=== PATIENT | female | born 1960 | race Caucasian/White ===

== ENCOUNTER 2016-10-21 08:36 | Emergency (ER) | payer BC ==
[2016-10-21 08:52] VITALS: BP 134/84
--- NOTE | 2016-10-21 09:36 | UC ---
Skin Complaint HPI - HPI Summary HPI Summary: Pt presents to the ED through amb triage. Pt states starting on Saturday developed erythema on anterior surface of ankle. Since this time, erythema has spread proximal and more circumferential. Pt denies fevers. States chills last night. Pt denies n/v. Pt with + pain - has not taken analgesia. Pt states had similar infection on RLE 2 years ago. Pt states developed blisters and required treatment at wound center. Pt denies calf pain. Pt is not immunocompromised. No wounds. Pt states stands on concrete floor for 8 hour work shifts. Not diabetic. Pt's medications reviewed at this visit. - History of Current Complaint Chief Complaint: UCSkin Time Seen by Provider: 10/21/16 09:16 Stated Complaint: LEFT LEG INFECTION Hx Obtained From: Patient Hx Last Menstrual Period: n/a ?: No Onset/Duration: Gradual Onset Skin Exposure Onset/Duration: Days Ago Timing: Constant Onset Severity: Mild Current Severity: Moderate Pain Intensity: 6 Pain Scale Used: 0-10 Numeric Location: Discrete - LLE Aggravating: Touch Alleviating: Nothing Associated Signs & Symptoms: Positive: Chills. Negative: Nausea, Diaphoresis, Wheezing, Chest Pain, Abdominal Pain - Allergy/Home Medications Allergies/Adverse Reactions: Allergies Allergy/AdvReac Type Severity Reaction Status Date / Time No Known Allergies Allergy Verified 10/21/16 08:52 Home Medications: Home Medications Levothyroxine TAB* [Synthroid TAB*] 100 mcg PO DAILY 10/21/16 [History Confirmed 10/21/16] Review of Systems Constitutional: Negative Skin: Rash Eyes: Negative ENT: Negative Respiratory: Negative Cardiovascular: Negative Gastrointestinal: Negative Genitourinary: Negative Motor: Negative Neurovascular: Negative Musculoskeletal: Negative Neurological: Negative Psychological: Negative All Other Systems Reviewed And Are Negative: Yes PMH/Surg Hx/FS Hx/Imm Hx Previously Healthy: Yes Endocrine History Of: Reports: Thyroid Disease - hypo-no meds - Surgical History Surgical History: None - Family History Known Family History: Positive: Hypertension - Social History Occupation: Employed Full-time Lives: With Family Alcohol Use: None Substance Use Type: None Smoking Status (MU): Former Smoker Type: Cigarettes Amount Used/How Often: 1/2 ppd Length of Time of Smoking/Using Tobacco: since 16 yo Household Exposure Type: Cigarettes - Immunization History Most Recent Influenza Vaccination: 4860-0351 Physical Exam Triage Information Reviewed: Yes Appearance: Well-Appearing, No Pain Distress, Well-Nourished Vital Signs: Initial Vital Signs Temp 98.3 F 10/21/16 08:46 Pulse 97 10/21/16 08:46 Resp 18 10/21/16 08:46 BP 134/84 10/21/16 08:46 Pulse Ox 98 10/21/16 08:46 Vital Signs Reviewed: Yes Eyes: Negative: Discharge ENT: Positive: Hearing grossly normal Neck: Positive: Supple, Nontender, No Lymphadenopathy Respiratory: Positive: No respiratory distress Cardiovascular: Positive: Other: - 2+ DP CBT < 2 sec Musculoskeletal: Positive: Strength Intact Neurological Exam: Normal Neurological: Positive: Alert Psychological Exam: Normal Skin: Positive: Other - Pt with erythema to dorsum of left foot with migration anterior pandey and near cicumferential to left ankle. + TTP no crepitus, open wound Course/Dx - Course Course Of Treatment: Pt with progressive cellulitisl LLE dorsum foot to mid pandey. + TTP. warmth. recommend pt to ED for labs, IV abx. d/w pt may require admission pending labs. Pt in agreement to go to ED. D/w Dr. Lawrence - accepting pt. transfer paperwork completed - Diagnoses Provider Diagnoses: cellulitis - Physician Notification/Consults Discussed Patient Care With: Dr. Lawrence - [facility] ED Time Discussed With Above Provider: 09:40 Discharge - Discharge Plan Condition: Stable Disposition: OTHER Discharge Disposition Comment: Transfer to [facility] - ED Patient Education Materials: Cellulitis (ED) Additional Instructions: Go directly to the emergency department at [place] - they are expecting you you will likely receive blood test and IV antibiotics
== END 2016-10-21 09:54 | disposition left against medical advice (07) ==
LOC: UCCORT 08:36
DX: L03.116 Cellulitis of left lower limb (principal); E03.9 Hypothyroidism, unspecified; Z87.891 Personal history of nicotine dependence
CPT/HCPCS: 99212; G0463

== ENCOUNTER 2016-12-20 16:53 | Emergency (ER) | payer SELFPAY ==
[2016-12-20 17:16] VITALS: BP 158/78
--- NOTE | 2016-12-20 17:24 | UC ---
Lower Extremity/Ankle HPI - HPI Summary HPI Summary: TWO DAYS OF LEFT LOWER LEG SWELLING REDNESS WARMTH. FEBRILE IN CLINICAL EVALUATION (100.4F) AND TACHYCARDIC (124 HR). NO HISTORY OF DM, HOWEVER, IS CURRENTLY BEING WORKED UP BY PRIMARY CARE FOR POSSIBLE DIABETES, STRONG FAMILY HX OF DM. - History of Current Complaint Chief Complaint: [place] Stated Complaint: LEFT LEG REDNESS Time Seen by Provider: 12/20/16 16:58 Hx Obtained From: Patient Hx Last Menstrual Period: n/a Onset/Duration: Gradual Onset, Lasting Days, Worse Since - TODAY Severity Initially: Mild Severity Currently: Moderate Aggravating Factor(s): Standing Alleviating Factor(s): Rest Able to Bear Weight: Yes - Risk Factors Gout Risk Factors: Age Over 40, Obesity DVT Risk Factors: Negative Septic Arthritis Risk Factor: Negative - Allergies/Home Medications Allergies/Adverse Reactions: Allergies Allergy/AdvReac Type Severity Reaction Status Date / Time No Known Allergies Allergy Verified 12/20/16 17:04 Home Medications: Home Medications Aspirin [Poncho Aspirin 325 MG] 325 mg PO DAILY 12/20/16 [History Confirmed 12/20] PMH/Surg Hx/FS Hx/Imm Hx Previously Healthy: Yes - Surgical History Surgical History: None - Family History Known Family History: Positive: Hypertension, Diabetes - Social History Occupation: Employed Full-time Lives: With Family Alcohol Use: None Substance Use Type: None Smoking Status (MU): Former Smoker Type: Cigarettes Amount Used/How Often: 1/2 ppd Length of Time of Smoking/Using Tobacco: since 16 yo Household Exposure Type: Cigarettes - Immunization History Most Recent Influenza Vaccination: [id number] Review of Systems Constitutional: Fever Skin: Rash - LEFT LEG Eyes: Negative ENT: Negative Respiratory: Negative Cardiovascular: Negative Gastrointestinal: Negative Genitourinary: Negative Motor: Negative Neurovascular: Negative Musculoskeletal: Edema, Myalgia Neurological: Negative Psychological: Negative All Other Systems Reviewed And Are Negative: Yes Physical Exam Triage Information Reviewed: Yes Appearance: Well-Appearing, No Pain Distress, Well-Nourished Vital Signs: Initial Vital Signs Temp 100.4 F 12/20/16 16:58 Pulse 124 12/20/16 16:58 Resp 24 12/20/16 16:58 BP 158/78 12/20/16 16:58 Pulse Ox 96 12/20/16 16:58 Vital Signs Reviewed: Yes Eye Exam: Normal ENT Exam: Normal ENT: Positive: Normal ENT inspection, Hearing grossly normal, TMs normal Dental Exam: Normal Neck exam: Normal Neck: Positive: Supple, Nontender, No Lymphadenopathy Respiratory Exam: Normal Respiratory: Positive: Chest non-tender, Lungs clear, Normal breath sounds, No respiratory distress Cardiovascular: Positive: No Murmur, Brisk Capillary Refill, Tachycardia Abdominal Exam: Normal Musculoskeletal: Positive: Strength Intact, ROM Intact, Edema @ - LEFT LOWER LEG , Other: - CIRCUMFERNTIAL ERRYTHEMA LEFT LOWER LEG Neurological Exam: Normal Psychological Exam: Normal Skin Exam: Normal Lower Extremity Course/Dx - Differential Dx/Diagnosis Differential Diagnosis/HQI/PQRI: Cellulitis, Gout, Infection, Sprain, Strain Provider Diagnoses: LEFT LOWER LEG CELLULITIS. SEPSIS CRITERIA (TACHYCARDIA, FEVER). HYPOTHYROIDISM - Physician Notifications Discussed Patient Care With: MAURI MAC Time Discussed With Above Provider: 17:15 - MAURI MAC [facility] ED Instructed by Provider To: MD Will See In ED Discharge - Discharge Plan Condition: Stable Disposition: TRANS HIGHER LVL OF CARE FAC Referrals: Lula Valdovinos [Primary Care Provider] -
== END 2016-12-20 17:20 | disposition short-term general hospital (02) ==
LOC: UCCORT 16:53
DX: L03.116 Cellulitis of left lower limb (principal); E03.9 Hypothyroidism, unspecified; E66.9 Obesity, unspecified; Z87.891 Personal history of nicotine dependence
CPT/HCPCS: 99212; G0463